=== PATIENT | female | born 1975 | race Caucasian/White ===

== ENCOUNTER 2016-10-24 18:54 | Emergency (ER) | payer OTHER ==
[~2016-10-24] VITALS: Ht 154.9 cm; Wt 51.3 kg
[2016-10-24 19:05] VITALS: BP_SYST 112
[2016-10-24] MEDS ORDERED: MORPHINE 4 MG/ML INJ. SYRINGE IVP ONE (19:45)
[2016-10-24] MEDS ORDERED: NACL 0.9% 1,000 ML IV ONE (19:45)
[2016-10-24] MEDS ORDERED: ONDANSETRON HCL 4 MG/2 ML VIAL IVP ONE (19:45)
[2016-10-24 20:24] LABS: BILIRUBIN,URINE NEGATIVE (NEGATIVE); CLARITY/URINE CLEAR (CLEAR); COLOR,URINE YELLOW (YELLOW); GLUCOSE,URINE NEGATIVE (NEGATIVE); KETONES,URINE NEGATIVE (NEGATIVE); LEUKOCYTE ESTERASE ,URINE NEGATIVE (NEGATIVE); NITRITE, URINE NEGATIVE (NEGATIVE); PROTEIN URINE NEGATIVE (NEGATIVE); UROBILINOGEN,URINE 0.2 (0.2-1.0)
[2016-10-24 20:37] LABS: BASOPHILS # (AUTO) 0.1 K/uL (0.0-0.2); EOSINOPHILS # (AUTO) 0.2 K/uL (0.0-0.4); EOSINOPHILS % (AUTO) 1.7 % (0.0-4.0); HEMATOCRIT 35.5 % (36-48); HEMOGLOBIN 11.9 g/dL (12.0-16.0); LYMPHOCYTES % (AUTO) 19.2 % (20.5-51.5); MEAN CORPUSCULAR HEMOGLOBIN 30 pg (27-31); MEAN CORPUSCULAR HGB CONC 34 % (32-36); MEAN CORPUSCULAR VOLUME 88 fL (79.0-98.0); MONOCYTES # (AUTO) 0.9 K/uL (0.0-1.0); MONOCYTES % (AUTO) 8.4 % (1.7-9.3); NEUTROPHILS # (AUTO) 7.1 K/uL (1.8-7.7); NEUTROPHILS % (AUTO) 69.7 % (40.0-70.0); PLATELET COUNT (AUTO) 348 K/uL (130-430); RED BLOOD CELL COUNT(AUTO) 4.04 MIL/uL (4.2-6.2); RED CELL DISTRIBUTION WIDTH 12.4 % (9.0-15.0); WHITE BLOOD COUNT (AUTO) 10.3 K/uL (4.8-10.8)
[2016-10-24 20:42] LABS: CALCIUM 8.5 mg/dL (8.4-11.0); POTASSIUM 3.5 mmol/L (3.5-5.1)
[2016-10-24 20:46] LABS: BLOOD, URINE TRACE (NEGATIVE)
[2016-10-24 20:47] LABS: ALBUMIN 3.9 g/dL (3.4-4.8); TOTAL BILIRUBIN 0.2 mg/dL (0.0-1.0); TOTAL PROTEIN, SERUM 6.7 g/dL (6.4-8.3)
[2016-10-24 20:49] LABS: BACTERIA,URINE FEW /HPF (None Seen); RBC,URINE 0-3 /HPF (0-3)
[2016-10-24 20:50] LABS: MUCUS,URINE None Seen /LPF (None Seen)
[2016-10-24 21:40] VITALS: BP_SYST 112
== END 2016-10-24 21:40 | disposition home or self-care (01) ==
LOC: SED 18:54
DX: N39.0 Urinary tract infection, site not specified (principal); R19.7 Diarrhea, unspecified; F41.9 Anxiety disorder, unspecified; M06.9 Rheumatoid arthritis, unspecified; F17.210 Nicotine dependence, cigarettes, uncomplicated; Z71.6 Tobacco abuse counseling
CPT/HCPCS: 36415; 80053; 81000; 81025; 85025; 96361; 96374; 96375; 99284; J2270; J2405; J7030

== ENCOUNTER 2016-10-27 19:36 | Emergency (ER) | payer OTHER ==
[~2016-10-27] VITALS: Ht 154.9 cm; Wt 51.3 kg
[2016-10-27 20:01] VITALS: BP_SYST 126
[2016-10-27] MEDS ORDERED: MORPHINE SULFATE 10 MG/ML VIAL IM ONE (20:15)
[2016-10-27] MEDS ORDERED: DIPHENHYDRAMINE INJ 50 MG/ML VIAL IM ONE (20:15)
[2016-10-27 22:00] VITALS: BP_SYST 126
== END 2016-10-27 22:00 | disposition home or self-care (01) ==
LOC: SED 19:36
DX: G89.29 Other chronic pain (principal); M06.9 Rheumatoid arthritis, unspecified; F41.9 Anxiety disorder, unspecified
CPT/HCPCS: 81025; 96372; 99284; J1200; J2270

== ENCOUNTER 2017-08-19 19:51 | Emergency (ER) | payer OTHER, MEDICAID ==
[~2017-08-19] VITALS: Ht 154.9 cm; Wt 59.0 kg
[2017-08-19 19:55] VITALS: BP_SYST 118
[2017-08-19] MEDS ORDERED: IPRATROPIUM/ALBUTEROL SULFATE 3 ML AMPUL.NEB INH ONE (21:00)
[2017-08-19] MEDS ORDERED: AZITHROMYCIN 250 MG TABLET PO ONE (21:45)
[2017-08-19] MEDS ORDERED: PREDNISONE 20 MG TABLET PO ONE (21:45)
[2017-08-19 22:20] VITALS: BP_SYST 115
== END 2017-08-19 22:20 | disposition home or self-care (01) ==
LOC: SED 19:51
DX: J40 Bronchitis, not specified as acute or chronic (principal); R03.0 Elevated blood-pressure reading, without diagnosis of hypertension; M06.9 Rheumatoid arthritis, unspecified; F41.9 Anxiety disorder, unspecified
CPT/HCPCS: 71045; 93005; 94640; 99284; J7512; Q0144

== ENCOUNTER 2017-09-29 14:49 | Emergency (ER) | payer OTHER, MEDICAID ==
[~2017-09-29] VITALS: Ht 154.9 cm; Wt 59.0 kg
[2017-09-29 15:02] VITALS: BP_SYST 104
[2017-09-29] MEDS ORDERED: MORPHINE SULFATE 30 MG Immediate Release TABLET PO ONE (16:15)
[2017-09-29] MEDS ORDERED: MORPHINE SULFATE 10 MG/5 ML ORAL SOL. UDC PO ONE (16:30)
[2017-09-29 17:30] VITALS: BP_SYST 118
== END 2017-09-29 17:30 | disposition home or self-care (01) ==
LOC: SED 14:49
DX: M06.9 Rheumatoid arthritis, unspecified (principal); F31.9 Bipolar disorder, unspecified; F41.9 Anxiety disorder, unspecified; Z90.49 Acquired absence of other specified parts of digestive tract; Z98.51 Tubal ligation status; Z87.891 Personal history of nicotine dependence
CPT/HCPCS: 99283; J2274

== ENCOUNTER 2017-10-02 16:49 | Emergency (ER) | payer OTHER, MEDICAID ==
[~2017-10-02] VITALS: Ht 154.9 cm; Wt 59.0 kg
[2017-10-02 16:50] VITALS: BP_SYST 96
[2017-10-02] MEDS ORDERED: KETOROLAC TROMETHAMINE 60 MG/2 ML VIAL IM ONE (17:15)
== END 2017-10-02 17:35 | disposition home or self-care (01) ==
LOC: SED 16:49
DX: G89.29 Other chronic pain (principal); M25.562 Pain in left knee; M25.561 Pain in right knee; M25.532 Pain in left wrist; M25.531 Pain in right wrist; M54.2 Cervicalgia; M06.9 Rheumatoid arthritis, unspecified
CPT/HCPCS: 81025; 96372; 99283; J1885

== ENCOUNTER 2019-11-19 12:12 | Emergency (ER) | payer OTHER ==
[~2019-11-19] VITALS: Ht 154.9 cm; Wt 59.0 kg
[2019-11-19 12:17] VITALS: BP_SYST 121
[2019-11-19] MEDS: ONDANSETRON HCL 4 MG/2 ML VIAL IVP ONE (13:15)
[2019-11-19] MEDS: NACL 0.9% 1,000 ML IV ONE (13:15)
[2019-11-19 13:26] LABS: BASOPHILS # (AUTO) 0.1 K/uL (0.0-0.2); BASOPHILS % (AUTO) 1.2 % (0.0-2.0); HEMATOCRIT 46.9 % (36-48); HEMOGLOBIN 15.5 g/dL (12.0-16.0); LYMPHOCYTES # (AUTO) 0.8 K/uL (1.0-5.5); LYMPHOCYTES % (AUTO) 9.8 % (20.5-51.5); MEAN CORPUSCULAR HEMOGLOBIN 30 pg (27-31); MEAN CORPUSCULAR HGB CONC 33 % (32-36); MEAN CORPUSCULAR VOLUME 91 fL (79.0-98.0); MONOCYTES # (AUTO) 0.2 K/uL (0.0-1.0); MONOCYTES % (AUTO) 2.3 % (1.7-9.3); NEUTROPHILS # (AUTO) 6.8 K/uL (1.8-7.7); NEUTROPHILS % (AUTO) 86.7 % (40.0-70.0); PLATELET COUNT (AUTO) 367 K/uL (130-430); RED BLOOD CELL COUNT(AUTO) 5.16 MIL/uL (4.2-6.2); RED CELL DISTRIBUTION WIDTH 14.6 % (9.0-15.0); WHITE BLOOD COUNT (AUTO) 7.9 K/uL (4.8-10.8)
[2019-11-19 13:41] LABS: CALCIUM 9.1 mg/dL (8.4-11.0); CREATININE 0.61 mg/dL (0.55-1.30); POTASSIUM 4.7 mmol/L (3.5-5.1)
[2019-11-19 13:47] LABS: ALBUMIN 4.3 g/dL (3.4-4.8); TOTAL BILIRUBIN 0.6 mg/dL (0.0-1.0)
[2019-11-19 14:08] VITALS: BP_SYST 121
== END 2019-11-19 14:08 | disposition home or self-care (01) ==
LOC: SED 12:12
DX: K29.00 Acute gastritis without bleeding (principal); F41.9 Anxiety disorder, unspecified; R11.2 Nausea with vomiting, unspecified
CPT/HCPCS: 36415; 80053; 83690; 85025; 96361; 96374; 99283; J2405; J7030